=== PATIENT | female | born 1960 | race African-American/Black ===

== ENCOUNTER 2020-07-29 01:15 | Emergency (ER) | payer OTHER ==
[~2020-07-29] VITALS: Ht 162.6 cm; Wt 104.5 kg
--- NOTE | 2020-07-29 01:27 | PHYS DOC ---
Past History Past Medical History: High Cholesterol General Adult HPI: HPI: 59-year-old female significant history of hyperlipidemia, who presents for evaluation of acute dyspnea. The patient states that she awoke just prior to arrival with dyspnea and lightheadedness. No chest pain, cough, headache, a bdominal pain, nausea or vomiting. The patient feels that she may be dehydrated as she changed her diet recently due to some constipation, and had a large bowel movement yesterday evening. No aggravating or alleviating factors. She states that her dyspnea is mostly improved at this time. No known history of sleep apnea. Review of Systems: Review of Systems: Gen: No fever, chills. Eyes: No blurred vision, diplopia. ENT: No nasal congestion, sore throat. CV: No CP, palpitations. Resp. No cough. Reports dyspnea. GI: No abd pain, N/V. Reports constipation, improved. : No dysuria, hematuria. Neuro: No JIN, weakness. Reports lightheadedness. MSK: No myalgia, arthralgia, back pain. Skin: No acute rash or lesion. Remainder of systems reviewed and negative unless otherwise specified. Physical Exam: PE: Gen: NAD. Well nourished. Head: NC/AT. Eyes: No scleral icterus. No conjunctival injection. ENT: MMM. Posterior OP clear. Uvula midline. Neck: Supple. NT. No JVD. CV: RRR. Peripheral pulses intact. Resp: CTAB. No increased work of breathing. Abd: Soft. NT. ND. MSK: No peripheral cyanosis. No edema. Neuro: A&Ox3. Strength & sensation grossly intact throughout. Skin. Warm. Dry. Psych: Appropriate mood & affect. Current Patient Data: Labs: Laboratory Tests Test 07/29/20 01:50 White Blood Count 9.4 x10^3/uL (4.0-11.0) Red Blood Count 4.36 x10^6/uL (3.50-5.40) Hemoglobin 11.9 g/dL (12.0-15.5) L Hematocrit 36.4 % (36.0-47.0) Mean Corpuscular Volume 84 fL (79-100) Mean Corpuscular Hemoglobin 27 pg (25-35) Mean Corpuscular Hemoglobin Concent 33 g/dL (31-37) Red Cell Distribution Width 15.2 % (11.5-14.5) H Platelet Count 266 x10^3/uL (140-400) Neutrophils (%) (Auto) 54 % (31-73) Lymphocytes (%) (Auto) 34 % (24-48) Monocytes (%) (Auto) 8 % (0-9) Eosinophils (%) (Auto) 2 % (0-3) Basophils (%) (Auto) 1 % (0-3) Neutrophils # (Auto) 5.0 x10^3uL (1.8-7.7) Lymphocytes # (Auto) 3.2 x10^3/uL (1.0-4.8) Monocytes # (Auto) 0.8 x10^3/uL (0.0-1.1) Eosinophils # (Auto) 0.2 x10^3/uL (0.0-0.7) Basophils # (Auto) 0.1 x10^3/uL (0.0-0.2) Sodium Level 141 mmol/L (136-145) Potassium Level 3.7 mmol/L (3.5-5.1) Chloride Level 107 mmol/L (98-107) Carbon Dioxide Level 28 mmol/L (21-32) Anion Gap 6 (6-14) Blood Urea Nitrogen 14 mg/dL (7-20) Creatinine 0.8 mg/dL (0.6-1.0) Estimated GFR (Cockcroft-Gault) 88.2 Glucose Level 111 mg/dL (70-99) H Calcium Level 8.8 mg/dL (8.5-10.1) Magnesium Level 1.8 mg/dL (1.8-2.4) Troponin I Quantitative < 0.017 ng/mL (0-0.055) SQ-Qqg-E-Type Natriuretic Peptide 42 pg/mL (0-124) EKG: EKG: EKG at 0146. Sinus rhythm. Heart rate 96. Normal intervals. Nonspecific ST-T changes. No STEMI criteria met. Interpreted by me. Radiology/Procedures: Radiology/Procedures: XR CHEST 1V History: Reason: SOA / Spl. Instructions: / History: Comparison: None. Findings: No consolidation or pleural effusion. Normal heart size. No pneumothorax. Impression: 1. No acute cardiopulmonary process. Electronically signed by: iRck Gomes DO (07/29/2020 2:16 AM) [facility] Heart Score: C/O Chest Pain: N/A Risk Factors: Risk Factors: DM, Current or recent (<one month) smoker, HTN, HLP, family history of CAD, obesity. Risk Scores: Score 0 - 3: 2.5% MACE over next 6 weeks - Discharge Home Score 4 - 6: 20.3% MACE over next 6 weeks - Admit for Clinical Observation Score 7 - 10: 72.7% MACE over next 6 weeks - Early Invasive Strategies Course & Med Decision Making: Course & Med Decision Making Pertinent Labs and Imaging studies reviewed. (See chart for details) In summary, 59F with PMH of HLD, p/w SOA and lightheadedness upon awakening just prior to arrival. No CP, URI Sx, fever, abd pain, N/V, JIN. Feels well at this time. No prior Hx CHF or known DORINA. EKG without acute injury pattern. Labs unrevealing including negative troponin. CXR clear. Remains well appearing and nontoxic. I considered but do not suspect ACS, PE, dissection, or CHF at this time. Possibility of undiagnosed DORINA. No acute emergent pathology identified. Will DC with outpatient F/U. Return precautions given. Dragon Disclaimer: Dragreynaldo Disclaimer: This electronic medical record was generated, in whole or in part, using a voice recognition dictation system. Departure Departure: Impression: Primary Impression: Dyspnea Disposition: 01 DC HOME SELF CARE/HOMELESS Condition: STABLE Referrals: MAYI VALENCIA (PCP) Patient Instructions: Shortness of Breath, [id number] Additional Instructions: Your workup in the ED tonight was unremarkable. Your heart labs (troponin/BNP) were normal. Your chest X-ray showed no acute findings, such as pneumonia. One consideration is the possibility of sleep apnea. If you have continued or recurrent episodes of shortness of breath upon awakening, consider undergoing a sleep study. You may call the [facility] at [phone] for an appointment. JACKIE RETANA DO Jul 29, 2020 01:27
[2020-07-29 01:33] VITALS: BP 161/62
[2020-07-29 02:09] LABS: BASO # 0.1 x10^3/uL (0.0-0.2); BASO % 1 % (0-3); EOS # 0.2 x10^3/uL (0.0-0.7); EOS % 2 % (0-3); HEMATOCRIT 36.4 % (36.0-47.0); HEMOGLOBIN 11.9 g/dL (12.0-15.5); LYMPH # 3.2 x10^3/uL (1.0-4.8); LYMPH % 34 % (24-48); MEAN CORPUSCULAR HEMOGLOBIN 27 pg (25-35); MEAN CORPUSCULAR HGB CONC 33 g/dL (31-37); MEAN CORPUSCULAR VOLUME 84 fL (79-100); MONO # 0.8 x10^3/uL (0.0-1.1); MONO % 8 % (0-9); NEUT % 54 % (31-73); PLATELET COUNT 266 x10^3/uL (140-400); RED BLOOD COUNT 4.36 x10^6/uL (3.50-5.40); RED CELL DISTRIBUTION WIDTH 15.2 % (11.5-14.5); WHITE BLOOD COUNT 9.4 x10^3/uL (4.0-11.0)
[2020-07-29 02:19] LABS: CALCIUM 8.8 mg/dL (8.5-10.1); CREATININE 0.8 mg/dL (0.6-1.0); GFR 88.2; POTASSIUM 3.7 mmol/L (3.5-5.1)
--- NOTE | 2020-07-29 02:19 | RAD ---
XR CHEST 1V History: Reason: SOA / Spl. Instructions: / History: Comparison: None. Findings: No consolidation or pleural effusion. Normal heart size. No pneumothorax. Impression: 1. No acute cardiopulmonary process. Electronically signed by: Rick Gomes DO (07/29/2020 2:16 AM) [facility]
[2020-07-29 02:31] LABS: MAGNESIUM 1.8 mg/dL (1.8-2.4)
--- NOTE | 2020-07-29 06:40 | EKG ---
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
== END 2020-07-29 02:50 | disposition home or self-care (01) ==
LOC: ER 01:15
DX: R06.09 Other forms of dyspnea (principal); R42 Dizziness and giddiness
CPT/HCPCS: 36415; 71045; 80048; 83735; 83880; 84484; 85025; 93005; 99285

== ENCOUNTER → 2020-08-10 | Outpatient (CLI) | payer OTHER ==
[2020-07-29 01:33] VITALS: BP 161/62
== END ==
LOC: MAMMO 11:18
PROVIDERS: ATTEND Family Medicine
DX: Z12.31 Encounter for screening mammogram for malignant neoplasm of breast (principal)
CPT/HCPCS: 77063; 77067